=== PATIENT | male | born 1965 | race Caucasian/White ===

== ENCOUNTER 2016-09-11 00:36 | Emergency (ER) | payer MEDICARE ==
[~2016-09-11] VITALS: Ht 188 cm; Wt 90.9 kg
[~2016-09-11 00:36] MED LIST: ALBU8.5H4 IH; CYCL5TAB11 PO; DIAZ10TA3 PO; FURO80TA PO; HYDR-22 PO; KETO5DRO OP; MTC10T1 PO; OMEP20TA86 PO; PHE25S PR; POTA10TA23 PO; POTA20TA16 PO; PROM25AM13 PO; PROM25SU46 RC; TRAZ150T72 PO; ULTRAM50 MG PO; ZLP10T PO; [UNRECOGNIZED DRUG - CODE] PO; lidoderm 5% patch TOP
[2016-09-11 00:40] VITALS: BP 134/75; PULSE 99; RESP 18; O2SAT 98
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
[2016-09-11 01:43] LABS: BASOPHILS % (AUTO) 1.2 % (0-3); EOSINOPHILS % (AUTO) 7.3 % (0-5); MONOCYTES % (AUTO) 11.2 % (4-12); Mean Corpuscular Hemoglobin 27.8 pg (27.0-35.0); Mean Corpuscular Volume 83.1 fL (81-100); NEUTROPHILS % (AUTO) 47.6 % (40-74); Platelet Count 149 bil/L (150-400)
[2016-09-11 02:05] LABS: Magnesium 1.6 mg/dL (1.6-2.6)
[2016-09-11] MEDS ORDERED: Promethazine 25 mg/mL Inj IM ONE (02:05)
[2016-09-11] MEDS ORDERED: CALC500T9 PO (02:52)
== END 2016-09-11 03:09 | disposition home or self-care (01) ==
LOC: SED 00:36
DX: K86.1 Other chronic pancreatitis (principal); I50.9 Heart failure, unspecified; I25.10 Atherosclerotic heart disease of native coronary artery without angina pectoris; I25.2 Old myocardial infarction; F43.10 Post-traumatic stress disorder, unspecified; F17.200 Nicotine dependence, unspecified, uncomplicated; Z88.5 Allergy status to narcotic agent; Z88.8 Allergy status to other drugs, medicaments and biological substances
CPT/HCPCS: 36415; 80053; 83690; 83735; 85025; 93005; 96372; 99284; J2550

== ENCOUNTER 2016-09-19 18:54 | Emergency (ER) | payer MEDICARE ==
[~2016-09-19] VITALS: Ht 188 cm; Wt 93.2 kg
[~2016-09-19 18:54] MED LIST changes: +CALC500T9 PO
[2016-09-19 19:02] VITALS: BP 108/72; PULSE 68; RESP 18; O2SAT 99
== END 2016-09-19 19:33 | disposition left against medical advice (07) ==
LOC: SED 18:54
DX: Z53.21 Procedure and treatment not carried out due to patient leaving prior to being seen by health care provider (principal)